=== PATIENT | male | born 1945 | race Caucasian/White ===

== ENCOUNTER 2020-10-17 09:36 | Observation (INO) ==
--- NOTE | 2020-09-15 14:27 | PAT Medication Instructions ---
Medication Instructions Date of Service September 15, 2020 Home Medications Lupron Injections 1 dose INJ UD acetaminophen [Tylenol Extra Strength] 1,000 mg PO Q6H PRN apalutamide [Erleada] 240 mg PO QPM aspirin [Aspir-81] 81 mg PO QAM ezetimibe [Zetia] 10 mg PO HS gabapentin 400 mg PO HS icosapent ethyl [Vascepa] 2 g PO BID isosorbide mononitrate [Imdur] 30 mg PO QAM lisinopril 5 mg PO QAM melatonin 5 mg PO HS PRN metoprolol succinate [Toprol XL] 25 mg PO QAM rosuvastatin [Crestor] 20 mg PO QPM warfarin [Jantoven] 10 mg PO QPM Continue as directed Lupron Injections 1 dose INJ UD (unless surgeon directs otherwise) ASK your prescriber and surgeon warfarin [Jantoven] 10 mg PO QPM apalutamide [Erleada] 240 mg PO QPM STOP taking 2 weeks before surgery icosapent ethyl [Vascepa] 2 g PO BID DO NOT take the morning of surgery lisinopril 5 mg PO QAM Take morning of surgery With a small sip of water, OTHERWISE NOTHING TO EAT OR DRINK AFTER MIDNIGHT: acetaminophen [Tylenol Extra Strength] 1,000 mg PO Q6H PRN (okay to take up to 4 hours prior to surgery if needed) aspirin [Aspir-81] 81 mg PO QAM (unless surgeon directs otherwise) isosorbide mononitrate [Imdur] 30 mg PO QAM metoprolol succinate [Toprol XL] 25 mg PO QAM Take evening before surgery acetaminophen [Tylenol Extra Strength] 1,000 mg PO Q6H PRN (if needed) ezetimibe [Zetia] 10 mg PO HS gabapentin 400 mg PO HS melatonin 5 mg PO HS PRN (if needed) rosuvastatin [Crestor] 20 mg PO QPM Other Notes If you have any questions please call us at [phone] or [phone] or [phone] or [phone]
--- NOTE | 2020-09-18 13:08 | History & Physical Report ---
Date of Service September 18, 2020 DATE OF SURGERY: 10/17/20 PROCEDURE: Left Total Knee Arthroplasty Assessment & Plan (1) Arthritis of knee, left: Risks and benefits of procedure discussed in detail today, patient would like to proceed with a Left total knee replacement at [facility] as scheduled. will obtain medical clearance from Dr Saunders prior to surgery, as well as cardiac clearance from Dr Garcia [facility], scheduled for cardiac cath on 09/19/20. has h/o 3 prior caths and stents x 4. Obtain PATs at [facility]. Will resume Coumadin post op, awaiting recommendations re: bridging, he is currently not bridging for his cardiac cath., f/u 2 weeks post op for routine post-operative care and x-ray, sooner if having any problems. will make arrangements for HHPT at the time of discharge. At this point in time, has failed conservative measures and would like to proceed with surgical intervention. has h/o DVT after fractured ankle and has been on Coumadin since that time. The risks and benefits have been discussed including, but not limited to, risk of infection, nerve injury, stiffness, loss of motion, failure to improve, etc. Reasonable outcomes and options of treatment were discussed. An explanation of appropriate alternatives to the procedure that may be advantageous were discussed and their risks and benefits, as well as the risks and benefits of not proceeding with treatment. I offered to answer any additional inquiries concerning the treatment involved. All the patient's questions were answered. The patient is agreeable, understanding of the treatment plan and alternatives, and wishes to proceed with the treatment plan. History of Present Illness Chief Complaint: left knee pain Primary Care Provider: NO PCP Gigi is a 74 year old male who complains of left knee pain, presents for pre-op evaluation prior to a left total knee replacement by Dr Machado at [facility]. He complains of pain, decreased range of motion, instability and stiffness in his left knee. rates his pain as 6/10 and currently the patient states that the symptoms are moderate-severe. The pain is described as aching, sharp and throbbing. His symptoms are aggravated by ascending stairs, daily activities, first steps while awake walking. Prior NSAIDs include Naproxen and IBU. He has been treated with previous visco injections in the past without much relief. Allergies Allergy/AdvReac Type Severity Reaction Status Date / Time [id number]-[id number]-[id number] Reductase AdvReac Unknown Affects Verified 09/18/20 13:00 Inhibitor liver and muscle aches Home Medications Medication Instructions Recorded Confirmed Type Lupron Injections 1 dose INJ UD 09/15/20 09/15/20 History acetaminophen [Tylenol Extra 1,000 mg PO Q6H PRN 09/15/20 09/15/20 History Strength] apalutamide [Erleada] 240 mg PO QPM 09/15/20 09/15/20 History aspirin [Aspir-81] 81 mg PO QAM 09/15/20 09/15/20 History ezetimibe [Zetia] 10 mg PO HS 09/15/20 09/15/20 History gabapentin 400 mg PO HS 09/15/20 09/15/20 History icosapent ethyl [Vascepa] 2 g PO BID 09/15/20 09/15/20 History isosorbide mononitrate [Imdur] 30 mg PO QAM 09/15/20 09/15/20 History lisinopril 5 mg PO QAM 09/15/20 09/15/20 History melatonin 5 mg PO HS PRN 09/15/20 09/15/20 History metoprolol succinate [Toprol XL] 25 mg PO QAM 09/15/20 09/15/20 History rosuvastatin [Crestor] 20 mg PO QPM 09/15/20 09/15/20 History warfarin [Jantoven] 10 mg PO QPM 09/15/20 09/15/20 History Past Med/Surg History Medical History A-fib Brief episodes noted on pacer check (rate controlled)- coumadin/beta reese Arthritis CAD (coronary artery disease) 01/2017- stents x2, 05/2016- stent x1, 2005- stent x1 Cancer Prostate (dx 2010) s/p prostatectomy/chemo/xrt Dvt femoral (deep venous thrombosis) s/p broken ankle surgery (2017), no issues since- on coumadin Hyperlipidemia Hypertension Obesity Pacemaker Implanted 08/2019 Pulmonary embolism s/p broken ankle surgery (2018), no issues since- on coumadin Surgical History History of arthroscopy R/L shoulder History of cardiac cath x3 (01/2017- stents x2, 05/2016- stent x1, 2004- stent x1) History of colonoscopy 2019 History of open reduction and internal fixation (ORIF) procedure Right ankle History of prostatectomy 2011 Pacemaker Implanted 08/2019 Family History Other No known health problems Social History Smoking Status: Former smoker Second Hand Exposure: Yes (MOTHER SMOKED); Hx Alcohol Use: Yes Alcohol type: beer Hx Substance Use: No Preferred Language: Kinyarwanda Communication Ability: Effective Sales Director Required: No Beliefs That Will Affect Care: None Current Living Situation: Spouse current occupational status: retired Feels Safe at Home: Yes Assistive Devices: Glasses and Hearing Aid - Bilateral Review of Systems Review of Systems: All systems reviewed & are unremarkable except as noted in HPI & below Constitutional: no fever, no chills and no sweats Respiratory: no cough and no dyspnea Cardiovascular: no chest pain, no dyspnea and no orthopnea Gastrointestinal: no abdominal pain, no nausea and no vomiting Musculoskeletal: as per Subjective / HPI Physical Exam Physical Exam: HT: 5ft 8in WT: 108.86kg BP: 122/80 Pulse: 61 Constitutional: WD/WN, vitals as above no acute distress Respiratory: normal respiratory effort, lungs clear to auscultation no respiratory distress, no labored breathing and does not use accessory muscles Cardiovascular: RRR, no murmur, no edema Gastrointestinal (Abdomen): normal bowel sounds, soft, nontender, no hepatosplenomegaly Musculoskeletal: Knee: + knee abnormal to inspection (LEFT KNEE: ), + effusion (+1 effusion), + limited ROM of knee (ROM 0/3/110), + knee ROM with crepitation, + joint line tenderness (medial joint line) and + David's sign positive; no deformity, no skin erythema, no ecchymosis, no valgus laxity, no varus laxity, anterior drawer test negative, Laurence's sign negative and pivot shift test negative Results & Data Results & Data ([facility]) Diagnostic Findings Left Knee X-ray: left knee series confirm advanced degenerative changes to the left knee, greatest medial compartments and patellofemoral joint, showing joint space narrowing, osteophyte formation and subchondral sclerosis. no acute bony pathology noted.
--- NOTE | 2020-09-18 13:10 | Anesthesiology Consultation ---
Date of Service September 18, 2020 Assessment & Plan (1) Encounter for pre-operative examination: - COVID screening: Per assessment on 09/18: Travel screen negative, no known COVID-19 positive contacts or current COVID-19 related symptoms. Patient vaccinated. Surgeon arranging preop COVID testing. Awaiting results. - Check coags AM DOS (warfarin instructions per surgeon/prescriber) - Cardiology office visit (08/30/20): "He has had new onset dyspnea on exertion going up stairs which is relatively minor but new within the last several months. It has not been progressive.. He has had some brief episodes of A. fib that is rate controlled on pacer check.. He did have to be transition from Eliquis to Coumadin due to drug interaction.. Patient is preop for surgery with new onset dyspnea on exertion and previously had stable angina which is improved with Imdur and thus I do think I would get stress test preoperatively to assess for ischemia given his symptoms. Additionally will check an echo to be sure fatigue does not represent LV dysfunction." ECHO done 09/04/20 which was unremarkable. Stress test done 09/07/20 noted "Suspicious for mild ischemia in a medium sized area of the lateral wall extending to the inferior wall. Please note that this abnormality seen only on the attenuation corrected images, however." Per patient, cardiac cath scheduled 09/19 ([facility]). Patient also states that CXR was done a few days ago (ordered by clinical laboratory science professor). Awaiting cardiac cath and CXR reports. Chart Review Chart Review: Patient seen in Pre Admission Testing Teaching & Discussion Pre-Anesthesia Teaching/Discussion Notes: Instructed NPO after midnight before surgery,except medications with 15 cc of water. Medication instructions provided according to the PAT guidelines. History Surgery Operation Date: 10/17/20 08:15 Proposed Procedures p Left Total Knee Arthroplasty - Jaden Machado DO Height/Weight Height: 5 ft 8 in Weight: 110.4 kg Allergies Allergy/AdvReac Type Severity Reaction Status Date / Time Upztcxo-Kmf-Ybn Reductase AdvReac Unknown Affects Verified 09/18/20 13:00 Inhibitor liver and muscle aches Medications Home Medications Medication Instructions Recorded Confirmed Last Taken Lupron Injections 1 dose INJ UD 09/15/20 09/15/20 Unknown acetaminophen [Tylenol Extra 1,000 mg PO Q6H PRN 09/15/20 09/15/20 Unknown Strength] apalutamide [Erleada] 240 mg PO QPM 09/15/20 09/15/20 Unknown aspirin [Aspir-81] 81 mg PO QAM 09/15/20 09/15/20 Unknown ezetimibe [Zetia] 10 mg PO HS 09/15/20 09/15/20 Unknown gabapentin 400 mg PO HS 09/15/20 09/15/20 Unknown icosapent ethyl [Vascepa] 2 g PO BID 09/15/20 09/15/20 Unknown isosorbide mononitrate [Imdur] 30 mg PO QAM 09/15/20 09/15/20 Unknown lisinopril 5 mg PO QAM 09/15/20 09/15/20 Unknown melatonin 5 mg PO HS PRN 09/15/20 09/15/20 Unknown metoprolol succinate [Toprol XL] 25 mg PO QAM 09/15/20 09/15/20 Unknown rosuvastatin [Crestor] 20 mg PO QPM 09/15/20 09/15/20 Unknown warfarin [Jantoven] 10 mg PO QPM 09/15/20 09/15/20 Unknown Past Medical History Medical History A-fib Brief episodes noted on pacer check (rate controlled)- coumadin/beta reese Arthritis CAD (coronary artery disease) 01/2017- stents x2, 05/2016- stent x1, 2004- stent x1 Cancer Prostate (dx 2010) s/p prostatectomy/chemo/xrt Dvt femoral (deep venous thrombosis) s/p broken ankle surgery (2017), no issues since- on coumadin Hyperlipidemia Hypertension Obesity Pacemaker Implanted 08/2019 Pulmonary embolism s/p broken ankle surgery (2017), no issues since- on coumadin Exercise / Class Metabolic Activity III < 4 Walking/Shop/Light housework (one FS (no CP, occasional SOB)) Past Family History Family History Other No known health problems Past Surgical History Surgical History History of arthroscopy R/L shoulder History of cardiac cath x3 (01/2017- stents x2, 05/2016- stent x1, 2004- stent x1) History of colonoscopy 2019 History of open reduction and internal fixation (ORIF) procedure Right ankle History of prostatectomy 2010 Pacemaker Implanted 08/2019 Past Anesthesia History No Hx of Anesthesia Complications and No Family Hx of Anesthesia Complications History of PONV No Hx of PONV and No Hx of Motion Sickness Social History Smoking Status: Former smoker Do You Dip or Chew Tobacco: No Smoking End Date: Quit 30 years ago Hx Alcohol Use: Yes Alcohol type: beer alcohol intake frequency: a few times a month Hx Substance Use: No Review of Systems Patient denies chest pain, shortness of breath, fever, chills, cough, wheezing, palpitations. Physical Exam Vital Signs VITALS BP 108/67 P 60 TEMP 98.7 SP02 95%RA RESP 18 PHYSICAL Full cervical extension range of motion. Full TMJ range of motion. TMD 3 finger breaths Mallampati Score 3 Dentition: upper front caps, missing molars Lungs: clear throughout to auscultation Cardiac: regular rate and rhythm, no murmurs noted Spine: normal Carotid arteries: negative bruit Extremities: no edema Lab Results Anesthesia Preop Results Results Anesthesia Widget: WBC 5.86 K/uL (4.8-10.8) 09/18/20 Hgb 13.2 g/dL (14.0-18.0) L 09/18/20 Hct 40.4 % (42-52) L 09/18/20 Plt 161 K/uL (130-400) 09/18/20 Na 141 mmol/L (136-145) 09/18/20 K 4.0 mmol/L (3.5-5.1) 09/18/20 Cl 108 mmol/L (98-107) H 09/18/20 CO2 27 mmol/L (21-32) 09/18/20 BUN 19 mg/dl (7-18) H 09/18/20 Creat 1.06 mg/dl (0.6-1.4) 09/18/20 Glucose Level 142 mg/dl (70-99) H 09/18/20 PT 10.3 Seconds (9.0-12.0) 09/18/20 PTT 26.4 Seconds (21.0-31.0) 09/18/20 INR 1.0 (0.9-1.1) 09/18/20 HA1c 5.9 % (4.5-5.6) H 09/18/20 Urine Color Yellow 09/18/20 Urine Appearance Clear (Clear) 09/18/20 Urine pH 5.5 (4.5-7.5) 09/18/20 Urine Specific Chandler 1.019 (1.000-1.030) 09/18/20 Urine Protein Negative (Negative) 09/18/20 Urine Glucose (UA) Negative (Negative) 09/18/20 Urine Ketones Trace (Negative) H 09/18/20 Urine Blood Negative (Negative) 09/18/20 Urine Nitrite Negative (Negative) 09/18/20 Urine Bilirubin Negative (Negative) 09/18/20 Urine Urobilinogen Negative (Negative) 09/18/20 Urine Leukocyte Esterase Negative (Negative) 09/18/20 Blood Type O Positive 09/18/20 Antibody Screen NEGATIVE 09/18/20 Testing Electrocardiogram Date: 08/30/20 Atrial paced rhythm with prolonged AV conduction at 61 bpm. LAD. Pulmonary disease pattern. No significant change compared to 01/20/2020 per clinical laboratory science professor review. Echocardiogram Date: 09/04/20 LVEF 55 to 60%. No regional wall motion abnormalities. No significant valvular disease. Stress Test Date: 09/07/20 Type: nuclear (Lexiscan) Suspicious for mild ischemia in a medium sized area of the lateral wall extending to the inferior wall. Please note that this abnormality seen only on the attenuation corrected images, however. Left ventricular systolic function is normal following Lexiscan regadenoson stress. The ejection fractions are normal. Cardiology scheduled patient for cardiac cath 09/19/20. Other Testing Pacer check (07/15/20): [facility] Mode DDDR. Battery longevity 9.5 to 10.1 years. 5 A. fib episodes. No ventricular triggered events. AP 99%. DYE RANGE TENDER 20%. "Appropriate device function"
[~2020-10-17 09:36] MED LIST: BUPIVACAINE 0.5 % 5 MG/1 ML PF 10ML VIAL ONE; CeleBREX 200 MG CAP PO SCH; EPINEPHrine INJ 1 MG/ML AMP ONE; FAMOTIDINE 20 MG TAB PO SCH; GABAPENTIN 300 MG CAP PO SCH; LR 500ML BOLUS, THEN 15ML/HR IV SCH; METOCLOPRAMIDE HCL 10 MG TABLET PO SCH; ROPIVACAINE 0.5% 5 MG/ML 30 ML VIAL ONE; ROPIVACAINE 0.5% HCL/PF 150 MG, BUPIVACAINE 0.75% MPF 20 ML, EPINEPHrine 30MG/30ML (OR ... INSTIL SCH; TRANEXAMIC ACID 1,000 MG **IV Intra-op IV SCH; TRANEXAMIC ACID 1,000 MG **IV Pre-op IV SCH; ceFAZolin 2000MG 2,000 MG/15 ML SYR IV SCH; dexAMETHasone 4 MG TAB PO SCH; oxyCODONE HCL 10 MG TABCR (OxyCONTIN) PO SCH
[2020-10-17] MEDS: ACETAMINOPHEN 500 MG TAB PO SCH ×3 (10:06→21:40)
[2020-10-17 10:21] LABS: Partial Thromboplastin Ratio 1.1; Partial Thromboplastin Time 28.3 Seconds (21.0-31.0); Prothrombin Time 9.9 Seconds (9.0-12.0)
--- NOTE | 2020-10-17 10:34 | History & Physical Bridge Note ---
Date of Service October 17, 2020 History & Physical Bridge Note I have examined the patient, reviewed the History & Physical and in the interval since the performance of the History & Physical I have noted the following changes of clinical significance: no changes noted
[2020-10-17] MEDS ORDERED: PROPOFOL IV EMULSION 10 MG/ML 20 ML VIAL IV ONE (10:51)
[2020-10-17] MEDS ORDERED: MIDAZOLAM HCL 1 MG/ML 2ML VIAL ONE (10:51)
[2020-10-17] MEDS ORDERED: fentaNYL citrate 100 MCG/2 ML VIAL ONE (10:52)
[2020-10-17] MEDS ORDERED: ORTHO JOINT ANESTHETIC ONE (12:16)
[2020-10-17] MEDS ORDERED: fentaNYL citrate 100 MCG/2 ML VIAL IV PRN (12:26)
[2020-10-17] MEDS ORDERED: ePHEDrine sulfate 50 MG/ML AMP IV PRN (12:26)
[2020-10-17] MEDS ORDERED: ATROPINE SULFATE 0.1 MG/ML 10ML SYR IV PRN (12:26)
[2020-10-17] MEDS ORDERED: ONDANSETRON INJ 2 MG/ML 2 ML VIAL IV PRN ×2 (12:26→15:56)
[2020-10-17] MEDS ORDERED: HYDROmorphone INJ 1 MG/ML SYRINGE IV PRN (12:26)
--- NOTE | 2020-10-17 13:53 | Operative Report ---
Post Operative Report Pre & Post Diagnosis Operation Date: 10/17/20 12:30 Pre-Op Diagnosis: Left Knee Osteoarthritis Post-Op Diagnosis: Left Knee Osteoarthritis I identified the patient and participated in the time-out.: Yes Procedure Operation Date: 10/17/20 12:30 Actual Procedures p Left Total Knee Arthroplasty(Left) utilizing [employer] persona nonblock size 9 femur standard tibia F polythirteen medial constrained patella 31 oval- Jaden Machado DO Surgeon Jaden Machado DO [employer] Terrell WATSON Estimated Blood Loss 5 Findings Consistent with Post-Op Diagnosis Patient presents with severe end-stage DJD left knee bone to bone marginal osteophyte subchondral sclerosis with cystic changes eburnated [id number] with moderate to large effusion Specimens Bone and cartilage Drains Medium bore Hemovac Anesthesia Type MAC Spinal Regional Complications none Disposition Accompanied Patient To Recovery: No Disposition: Recovery Room Indications Patient presents with severe end-stage DJD failing attempted conservative management clinic physical therapy anti-inflammatories relative rest activity modification corticosteroid injection viscosupplementation above intraoperative findings were noted Description of Procedure After proper prepping and draping of the left lower extremity anterior midline incision was made over the region of the extensor extensor mechanism after meticulous hemostasis was obtained and maintained in subcutaneous tissues a medial parapatellar incision was made The patella was subluxed lateralward the medial lateral gutter were cleaned from any hypertrophic synovitis and scar tissue of the distal femoral block was placed and the distal femoral osteotomy cut was made subsequently the chamfers anterior and posterior osteotomy cuts were made utilizing the 4-in-1 block the tibia was subsequently subluxed anteriorward medial and ateral meniscal remnants were excised in their entirety remnants of the anterior and posterior cruciate ligaments were excised in their entirety excellent exposure of the proximal tibia was obtained the tibial osteotomy guide was placed on the proximal tibial osteotomy cut was made once again the knee was irrigated with copious amounts of sterile saline solution the patella was subsequently everted lateralward thickened scar tissue around the patella was removed the patella was subsequently cut utilizing a freehand technique and was drilled prepared for final preparation and placement of patella socially flexion-extension gaps were checked and the equal and symmetric trials were placed to the appropriate femoral and tibial trials with poly-spacer being placed for equal flexion and extension gaps and full range of motion including extension to 0 and flexion to 140 the trial components after having been taken to recovery range of motion was subsequently removed meticulous hemostasis was obtained and maintained subsequently a knee block injection of joint cocktail including ropivacaine 0.5% 150 mg. Bupivacaine 0.5% epinephrine 1-200,030 mL's toradol 30 mg dexamethasone 4 mg ketamine 10 mg clonidine 100 micrograms normal saline solution 30 mg was infiltrated into the soft tissues of the posterior knee medial lateral gutters and periosteal synovium special attention was paid to protect neurovascular structures at all times subsequently trial components having been removed the knee was irrigated with sterile saline solution. debris was removed the proximal tibia was subsequently prepared and was made ready for the placement of the tibial component tibial component was also cemented and tamped into position the femoral component was subsequently placed and cemented in the position the patellar component was subsequently cemented in position because hemostasis once again obtained and maintained wound having been thoroughly irrigated with debridement and debridement lavage was pe rformed as well as a medial parapatellar incision closed with #1 Vicryl in interrupted fashion subcutaneous was closed with #2 Vicryl skin was closed with skin clips. PA-C was necessary for prepping and drapping as well as wound closure of deep fascia Sub cutaneous tissue and skin and was necessary for the case. A sterile compressive dressing was placed patient was taken to recovery in stable condition of report dictated by Carter I attest to the content of the Intraoperative Record and any orders documented therein. Any exceptions are noted below. I attest to the content of the Intraoperative Record and any orders documented therein. Any exceptions are noted below.
--- NOTE | 2020-10-17 14:57 | Anesthesiology Progress Note ---
Date of Service October 17, 2020 Anesthesia Post Procedure Vital Signs Vital Signs: Temp Pulse Pulse Resp BP BP Pulse Ox 10/17/20 14:50 60 16 126/62 100 10/17/20 14:40 61 16 118/60 99 10/17/20 14:34 36.1 C L 60 16 113/56 L 97 10/17/20 10:53 36.8 C 60 18 119/68 98 10/17/20 10:10 37.1 C 60 16 156/71 H 98 Transfer of Care Handoff Completed per policy Notes Mental Status: alert / awake / arousable Patient Amnestic to Procedure: Yes Nausea / Vomiting: adequately controlled Pain: adequately controlled Airway Patency, RR, SpO2: stable & adequate BP & HR: stable & adequate Hydration State: stable & adequate Neuraxial Anesthesia: was administered and sensory block is resolving Anesthetic Complications: no major complications apparent
--- NOTE | 2020-10-17 15:04 | XRay Report ---
XR knee LT 1 or 2V routine CLINICAL HISTORY: Surgical Post Op COMPARISON: None. DISCUSSION: Prosthetic left knee joint is seen. No acute fracture dislocation demonstrated. Subcutaneous emphysema, skin ed and surgical drainage are seen. Mild soft tissue edema. IMPRESSION: Postoperative changes as detailed above. ACT 112: Negative or not required by law. The above report was generated using voice recognition software. It may contain grammatical, syntax o r spelling errors. Electronically signed by: Jessica Garza DO 10/17/2020 3:03 PM
[2020-10-17] MEDS ORDERED: oxyCODONE HCL IR 5 MG TAB (IMMEDIATE RELEASE) PO PRN (15:56)
[2020-10-17] MEDS ORDERED: MAGNESIUM HYDROXIDE SUSP 30 ML UDC PO PRN (15:56)
[2020-10-17] MEDS ORDERED: HYDROmorphone INJ 0.5 MG/0.5 ML SYR IV PRN (15:56)
[2020-10-17] MEDS ORDERED: bisacodyL 10 MG SUPP PR PRN (15:56)
[2020-10-17] MEDS ORDERED: SODIUM CHLORIDE 0.9% 1000ML 1,000 ML IV SCH (15:56)
[2020-10-17] MEDS ORDERED: NALOXONE HCL 0.4 MG/1 ML VIAL/CARP IV PRN (15:56)
[2020-10-17] MEDS ORDERED: WARFARIN SOD 10 MG TAB PO SCH ×2 (16:00→21:00)
[2020-10-17] MEDS: FERROUS GLUCONATE 324 MG TAB PO SCH (17:05)
[2020-10-17] MEDS: DOCUSATE SODIUM 100 MG CAP PO SCH (20:53)
[2020-10-17] MEDS: ceFAZolin 2000MG 2,000 MG/15 ML SYR IV SCH (20:53)
[2020-10-17] MEDS ORDERED: ROSUVASTATIN CALCIUM 20 MG TAB PO SCH (21:00)
[2020-10-17] MEDS ORDERED: GABAPENTIN 400 MG CAP PO SCH (21:00)
[2020-10-17] MEDS ORDERED: SENNA 8.6 MG TAB PO SCH (21:00)
[2020-10-17] MEDS ORDERED: EZETIMIBE 10 MG TABLET PO SCH (21:00)
[2020-10-18] MEDS: ACETAMINOPHEN 500 MG TAB PO SCH (06:04)
[2020-10-18] MEDS: ceFAZolin 2000MG 2,000 MG/15 ML SYR IV SCH (06:06)
[2020-10-18 06:43] LABS: Hematocrit (blood only) 33.8 % (42-52); Hemoglobin 11.2 g/dL (14.0-18.0); Mean Corpuscular Hemoglobin 29.8 pg (25-34); Mean Corpuscular Hgb Conc 33.1 g/dL (32-36); Mean Corpuscular Volume 89.9 fL (80-100); Mean Platelet Volume 10.4 fL (7.4-10.4); Platelet Count 122 K/uL (130-400); RDW Standard Deviation 46.3 fL (36.4-46.3); Red Blood Count 3.76 M/uL (4.7-6.1); White Blood Count 6.46 K/uL (4.8-10.8)
[2020-10-18 06:47] LABS: Prothrombin Time 10.2 Seconds (9.0-12.0)
[2020-10-18 07:12] LABS: BUN Creatinine Ratio 16.4 (10-20); Calcium 8.2 mg/dl (8.5-10.1); Creatinine Clr Calc Pharmacy 88.5 ml/min; Est GFR (African American) 98.3 ml/min; Est GFR (Non-African American) 84.8 ml/min; Potassium 3.6 mmol/L (3.5-5.1)
--- NOTE | 2020-10-18 07:24 | Orthopedic Progress Note ---
Date of Service October 18, 2020 Assessment & Plan (1) History of total left knee replacement: Plan: POD #1 s/p Left TKA pt/ot dvt proph with ANA LUISA/SCD/resume home Coumadin dose plan for d/c home with HHPT Admission and Anticipated Discharge Date Admission Date: October 17, 2020 Subjective POD #1 s/p Left TKA Review of Systems Constitutional: no fever, no chills and no sweats Respiratory: no cough and no dyspnea Cardiovascular: no chest pain and no dyspnea Gastrointestinal: no abdominal pain, no nausea and no vomiting Physical Exam Physical Exam: Vital Signs Temp Pulse Pulse Resp BP BP Pulse Ox 10/18/20 07:14 36.8 C 63 17 151/82 H 96 10/18/20 03:03 36.4 C L 62 16 111/63 97 10/17/20 22:48 36.6 C 62 16 120/65 97 10/17/20 18:57 36.5 C 58 L 17 138/73 98 10/17/20 18:00 36.7 C 62 18 142/75 H 96 10/17/20 17:00 36.4 C L 62 18 148/79 H 94 10/17/20 16:26 36.4 C L 60 18 142/71 H 97 10/17/20 15:56 36.4 C L 60 18 155/77 H 97 10/17/20 15:30 63 16 141/73 H 96 10/17/20 15:15 62 16 124/62 96 10/17/20 15:00 36.3 C L 60 16 118/62 97 10/17/20 14:50 60 16 126/62 100 10/17/20 14:40 61 16 118/60 99 10/17/20 14:34 36.1 C L 60 16 113/56 L 97 10/17/20 10:53 36.8 C 60 18 119/68 98 10/17/20 10:10 37.1 C 60 16 156/71 H 98 Intake and Output 10/17/20 10/18/20 10/18/20 22:59 06:59 14:59 Intake Total 675 / 2581.667 806.667 / 2581.667 Output Total 700 / 1655 950 / 1655 Balance -25 / 926.667 -143.333 / 926.667 Intake: IV 200 / 1006.667 806.667 / 1006.667 Sodium Chlorid e 0.9% 1000ML 1, 806.667 / 806.667 000 ml @ 100 m ls/hr IV .Q10H [facility] Rx#:[id number] Tranexamic Aci d / 0.7% NaCl 1, 200 / 200 000 mg In 100 ml @ 600 mls/hr IV TODAY@0600 [facility] Rx#:[id number] Oral 475 / 475 Output: Urine 600 / 1550 950 / 1550 Drain Output 100 / 100 Left Knee Hemo vac 100 / 100 Constitutional: WD/WN, vitals as above Musculoskeletal: Left Leg: NVDI, calf SNT, negative isabell sign. DP palpable, able to wiggle toes/ankle movement without difficulty. dressing clean dry and intact. Results & Data ([facility]) Vital Signs (Past 12 Hours) Vital Signs Temp Pulse Resp BP Pulse Ox 10/18/20 07:14 36.8 C 63 17 151/82 H 96 10/18/20 03:03 36.4 C L 62 16 111/63 97 10/17/20 22:48 36.6 C 62 16 120/65 97 Laboratory Results Laboratory Results WBC 6.46 K/uL (4.8-10.8) 10/18/20 05:49 RBC 3.76 M/uL (4.7-6.1) L 10/18/20 05:49 Hgb 11.2 g/dL (14.0-18.0) L 10/18/20 05:49 Hct 33.8 % (42-52) L 10/18/20 05:49 MCV 89.9 fL (80-100) 10/18/20 05:49 MCH 29.8 pg (25-34) 10/18/20 05:49 MCHC 33.1 g/dL (32-36) 10/18/20 05:49 RDW Std Deviation 46.3 fL (36.4-46.3) 10/18/20 05:49 RDW Coeff of Jonathan 14.0 % (11.5-14.5) 10/18/20 05:49 Plt Count 122 K/uL (130-400) L 10/18/20 05:49 MPV 10.4 fL (7.4-10.4) 10/18/20 05:49 PT 10.2 Seconds (9.0-12.0) 10/18/20 05:49 INR 1.0 (0.9-1.1) 10/18/20 05:49 APTT 28.3 Seconds (21.0-31.0) 10/17/20 10:00 PTT Ratio 1.1 10/17/20 10:00 Sodium 138 mmol/L (136-145) 10/18/20 05:49 Potassium 3.6 mmol/L (3.5-5.1) 10/18/20 05:49 Chloride 112 mmol/L (98-107) H 10/18/20 05:49 Carbon Dioxide 26 mmol/L (21-32) 10/18/20 05:49 Anion Gap 0 (3-11) L 10/18/20 05:49 BUN 15 mg/dl (7-18) 10/18/20 05:49 Creatinine 0.89 mg/dl (0.6-1.4) 10/18/20 05:49 Est Cr Clr Drug Dosing 88.5 ml/min 10/18/20 05:49 Est GFR ( Amer) 98.3 ml/min 10/18/20 05:49 Est GFR (Non-Af Amer) 84.8 ml/min 10/18/20 05:49 BUN/Creatinine Ratio 16.4 (10-20) 10/18/20 05:49 Glucose 129 mg/dl (70-99) H 10/18/20 05:49 Calcium 8.2 mg/dl (8.5-10.1) L 10/18/20 05:49 COVID-19 Eval Order Covid19 [facility] 10/17/20 Unknown SARS-CoV-2, RNA, NAAT NEGATIVE (NEGATIVE) 10/17/20 Unknown Impressions Knee X-Ray 10/17/20 14:38 XR knee LT 1 or 2V routine CLINICAL HISTORY: Surgical Post Op COMPARISON: None. DISCUSSION: Prosthetic left knee joint is seen. No acute fracture dislocation demonstrated. Subcutaneous emphysema, skin ed and surgical drainage are seen. Mild soft tissue edema. IMPRESSION: Postoperative changes as detailed above. ACT 112: Negative or not required by law. The above report was generated using voice recognition software. It may contain grammatical, syntax or spelling errors. Electronically signed by: Jessica Garza DO 10/17/2020 3:03 PM
[2020-10-18] MEDS: DOCUSATE SODIUM 100 MG CAP PO SCH (08:22)
[2020-10-18] MEDS: FERROUS GLUCONATE 324 MG TAB PO SCH (08:22)
[2020-10-18] MEDS ORDERED: lisinopril 5 MG TAB PO SCH (09:00)
[2020-10-18] MEDS ORDERED: MULTIVITAMIN TAB PO SCH (09:00)
[2020-10-18] MEDS ORDERED: METOPROLOL SUCC 25MG EXT REL TAB PO SCH (09:00)
[2020-10-18] MEDS ORDERED: ISOSORBIDE MONO EXTENDED REL 30 MG TABCR PO SCH (09:00)
--- NOTE | 2020-10-19 11:20 | Discharge Summary ---
Date of Service October 19, 2020 Admission HPI Per Admitting Provider Gigi is a 74 year old male who complains of left knee pain, presents for pre-op evaluation prior to a left total knee replacement by Dr Machado at [facility]. He complains of pain, decreased range of motion, instability and stiffness in his left knee. rates his pain as 6/10 and currently the patient states that the symptoms are moderate-severe. The pain is described as aching, sharp and throbbing. His symptoms are aggravated by ascending stairs, daily activities, first steps while awake walking. Prior NSAIDs include Naproxen and IBU. He has been treated with previous visco injections in the past without much relief. Admission Exam Per Admitting Provider Physical Exam Physical Exam: HT: 5ft 8in WT: 108.86kg BP: 122/80 Pulse: 61 Constitutional: WD/WN, vitals as above no acute distress Respiratory: normal respiratory effort, lungs clear to auscultation no respiratory distress, no labored breathing and does not use accessory muscles Cardiovascular: RRR, no murmur, no edema Gastrointestinal (Abdomen): normal bowel sounds, soft, nontender, no hepatosplenomegaly Musculoskeletal: Knee: + knee abnormal to inspection (LEFT KNEE: ), + effusion (+1 effusion), + limited ROM of knee (ROM 0/3/110), + knee ROM with crepitation, + joint line tenderness (medial joint line) and + David's sign positive; no deformity, no skin erythema, no ecchymosis, no valgus laxity, no varus laxity, anterior drawer test negative, Laurence's sign negative and pivot shift test negative Principal Diagnosis Left knee osteoarthritis Discharge Data Allergies Allergy/AdvReac Type Severity Reaction Status Date / Time Prtquox-Pno-Lke Reductase AdvReac Unknown Affects Verified 10/17/20 10:17 Inhibitor liver and muscle aches Consultations 10/10/20 15:00 Consult Hospitalist Routine Procedures Performed Operation Date: 10/17/20 12:30 Actual Procedures p Left Total Knee Arthroplasty(Left) - Jaden Machado DO Ordered Studies 10/17/20 05:00 US - OR guided needle placemen Routine Hospital Course (1) Arthritis of knee, left: Date of Service October 18, 2020 Assessment & Plan (1) History of total left knee replacement: Plan: POD #1 s/p Left TKA pt/ot dvt proph with ANA LUISA/SCD/resume home Coumadin dose plan for d/c home with HHPT Admission and Anticipated Discharge Date Admission Date: October 17, 2020 Subjective POD #1 s/p Left TKA Review of Systems Constitutional: no fever, no chills and no sweats Respiratory: no cough and no dyspnea Cardiovascular: no chest pain and no dyspnea Gastrointestinal: no abdominal pain, no nausea and no vomiting Physical Exam Physical Exam: Vital Signs Temp Pulse Pulse Resp BP BP Pulse Ox 10/18/20 07:14 36.8 C 63 17 151/82 H 96 10/18/20 03:03 36.4 C L 62 16 111/63 97 10/17/20 22:48 36.6 C 62 16 120/65 97 10/17/20 18:57 36.5 C 58 L 17 138/73 98 10/17/20 18:00 36.7 C 62 18 142/75 H 96 10/17/20 17:00 36.4 C L 62 18 148/79 H 94 10/17/20 16:26 36.4 C L 60 18 142/71 H 97 10/17/20 15:56 36.4 C L 60 18 155/77 H 97 10/17/20 15:30 63 16 141/73 H 96 10/17/20 15:15 62 16 124/62 96 10/17/20 15:00 36.3 C L 60 16 118/62 97 10/17/20 14:50 60 16 126/62 100 10/17/20 14:40 61 16 118/60 99 10/17/20 14:34 36.1 C L 60 16 113/56 L 97 10/17/20 10:53 36.8 C 60 18 119/68 98 10/17/20 10:10 37.1 C 60 16 156/71 H 98 Intake and Output 10/17/20 10/18/20 10/18/20 22:59 06:59 14:59 Intake Total 675 / 2581.667 806.667 / 2581.667 Output Total 700 / 1655 950 / 1655 Balance -25 / 926.667 -143.333 / 926.667 Intake: IV 200 / 1006.667 806.667 / 1006.667 Sodium Chlorid e 0.9% 1000ML 1, 806.667 / 806.667 000 ml @ 100 m ls/hr IV .Q10H [facility] Rx#:[id number] Tranexamic Aci d / 0.7% NaCl 1, 200 / 200 000 mg In 100 ml @ 600 mls/hr IV TODAY@0600 [facility] Rx#:[id number] Oral 475 / 475 Output: Urine 600 / 1550 950 / 1550 Drain Output 100 / 100 Left Knee Hemo vac 100 / 100 Constitutional: WD/WN, vitals as above Musculoskeletal: Left Leg: NVDI, calf SNT, negative isabell sign. DP palpable, able to wiggle toes/ankle movement without difficulty. dressing clean dry and intact. Results & Data ([facility]) Vital Signs (Past 12 Hours) Vital Signs Temp Pulse Resp BP Pulse Ox 10/18/20 07:14 36.8 C 63 17 151/82 H 96 10/18/20 03:03 36.4 C L 62 16 111/63 97 10/17/20 22:48 36.6 C 62 16 120/65 97 Laboratory Results Laboratory Results WBC 6.46 K/uL (4.8-10.8) 10/18/20 05:49 RBC 3.76 M/uL (4.7-6.1) L 10/18/20 05:49 Hgb 11.2 g/dL (14.0-18.0) L 10/18/20 05:49 Hct 33.8 % (42-52) L 10/18/20 05:49 MCV 89.9 fL (80-100) 10/18/20 05:49 MCH 29.8 pg (25-34) 10/18/20 05:49 MCHC 33.1 g/dL (32-36) 10/18/20 05:49 RDW Std Deviation 46.3 fL (36.4-46.3) 10/18/20 05:49 RDW Coeff of Jonathan 14.0 % (11.5-14.5) 10/18/20 05:49 Plt Count 122 K/uL (130-400) L 10/18/20 05:49 MPV 10.4 fL (7.4-10.4) 10/18/20 05:49 PT 10.2 Seconds (9.0-12.0) 10/18/20 05:49 INR 1.0 (0.9-1.1) 10/18/20 05:49 APTT 28.3 Seconds (21.0-31.0) 10/17/20 10:00 PTT Ratio 1.1 10/17/20 10:00 Sodium 138 mmol/L (136-145) 10/18/20 05:49 Potassium 3.6 mmol/L (3.5-5.1) 10/18/20 05:49 Chloride 112 mmol/L (98-107) H 10/18/20 05:49 Carbon Dioxide 26 mmol/L (21-32) 10/18/20 05:49 Anion Gap 0 (3-11) L 10/18/20 05:49 BUN 15 mg/dl (7-18) 10/18/20 05:49 Creatinine 0.89 mg/dl (0.6-1.4) 10/18/20 05:49 Est Cr Clr Drug Dosing 88.5 ml/min 10/18/20 05:49 Est GFR ( Amer) 98.3 ml/min 10/18/20 05:49 Est GFR (Non-Af Amer) 84.8 ml/min 10/18/20 05:49 BUN/Creatinine Ratio 16.4 (10-20) 10/18/20 05:49 Glucose 129 mg/dl (70-99) H 10/18/20 05:49 Calcium 8.2 mg/dl (8.5-10.1) L 10/18/20 05:49 COVID-19 Eval Order Covid19 [facility] 10/17/20 Unknown SARS-CoV-2, RNA, NAAT NEGATIVE (NEGATIVE) 10/17/20 Unknown Impressions Knee X-Ray 10/17/20 14:38 XR knee LT 1 or 2V routine CLINICAL HISTORY: Surgical Post Op COMPARISON: None. DISCUSSION: Prosthetic left knee joint is seen. No acute fracture dislocation demonstrated. Subcutaneous emphysema, skin ed and surgical drainage are seen. Mild soft tissue edema. IMPRESSION: Postoperative changes as detailed above. Total Time Total Time Spent Total Time Spent (In Minutes): 5 Discharge Plan Discharge Items Patient Disposition: Home - Home Health Services Reason For Visit: Left Knee Osteoarthritis Discharge Diagnosis: left total knee replacement Condition on Discharge: Good Activity: Per Instructions section Lifting: Wait until after follow-up appointment Weightbearing Comment: WBAT with walker Non-emergency contact: Surgeon Call non-emergency contact if: you have any medication questions, your temperature is above 101, your wound has increased redness, your wound has increased drainage and your wound pain has increased Follow-up/Referrals: Tristian Patten M.D. [Primary Care Provider] - Diet: Regular Addtl Attending Provider Instructions: ACTIVITY RECOMMENDATIONS: SELF CARE INSTRUCTIONS AFTER TOTAL KNEE REPLACEMENT A. You may need to continue a physical therapy program after discharge from the hospital. There are several options available to you. Your doctor will assist you in selecting the best one for you. 1. An out-patient facility 2 to 3 times a week for therapy or home therapy. 2. Continue working on all exercises taught to you in the hospital. Your goals should be to increase bending of your knee to 90 degrees and beyond and to fully straighten your knee. B. You may progress at your own pace from walking with a walker or crutches to a cane; then to no assistive devices. C. Make walking a part of your daily routine. Be up as much as comfortable with rest periods throughout the day. Rest with leg elevation is very important. Use the ice wrap frequently for the first 3-4 weeks. D. There are no restrictions on activities. You may ride in a car, shop, participate in lehr attendant and all social activities. E. Wear the long elastic stockings (ANA LUISA hose) 20 hours a day for 2 weeks after surgery. They can be removed several times a day for laundering and for a bath. F. You may shower, no tub baths until cleared by your doctor. SPECIAL CARE INSTRUCTIONS: VERY IMPORTANT TO READ AND REVIEW A. There are a few signs you need to watch for after you are home. Call [facility] if you notice any of the followin. Increased severe knee pain. Some pain is expected especially when you exercise. 2. Increased swelling in your leg or knee; pain or swelling of the calf muscle in either lower leg. 3. Any fluid drainage from the incision. 4. Shortness of breath or chest pain. B. Please call [facility] at if you have any concerns or questions about your operation or recovery. The doctor or his nurse will return your call promptly. C. You must take antibiotics before dental work, bladder, bowel or other surgery. Your doctor will provide you with a permanent care to carry describing this precaution. IMPORTANT: * REMEMBER TO TAKE ASPIRIN, 81 MG, TWICE DAILY FOR 4 WEEKS UNLESS OTHERWISE DIRECTED. THIS IS YOUR BLOOD THINNER. * HIGH RISK PATIENTS MAY BE PRESCRIBED A STRONGER BLOOD THINNER. THIS WILL BE PROVIDED AT DISCHARGE. * CALL IF INCREASED PAIN, REDNESS, DRAINAGE OR FEVER GREATER THAT 101. * WEAR ANA LUISA HOSE 20 HOURS PER DAY FOR 2 WEEKS. * DERMABOND Prineo- This is a mesh tape dressing that is covered with glue. It should remain in place until the incision is properly healed, usually 10-14 days. This dressing is designed to naturally slough off. You may trim the excess mesh tape as it peels off. Incision may be briefly wet in a shower. Dry immediately by blotting with a clean, dry towel. Do not bath or swim until instructed by your doctor. Do not scratch, rub, or pick at the dressing. Do not apply any topical ointments or lotions until dressing is completely removed and/or instructed by your doctor. There may be a small piece of suture material at one end of your incision. Do not pull or trim this. If it is bothersome or catching on clothing, you may cover it with a band-aid. IF INCISION IS LEAKING THROUGH DRESSING, CALL THE OFFICE . FOLLOW UP VISIT: If appointment is not already scheduled: Please call [facility] to make a follow-up appointment for 2 weeks after your surgery at . Pending Studies at Discharge: No Stand-Alone Forms: My [facility], Opioid Pain Management, Smoking Cessation Medications and DC Order Prescriptions: New acetaminophen [Tylenol Extra Strength] 500 mg Tablet 1,000 mg PO Q8 21 Days Qty: 126 RF: 0 oxycodone 5 mg Tablet 5 - 10 mg PO Q6H PRN (Reason: pain) Qty: 30 RF: 0 docusate sodium 100 mg Capsule 100 mg PO BID 10 Days Qty: 20 RF: 0 cefadroxil 500 mg capsule 500 mg PO BID 14 Days Qty: 28 RF: 0 Continued isosorbide mononitrate 30 mg Tablet Extended Release 24 Hr 30 mg PO QAM RF: 0 gabapentin 400 mg Capsule 400 mg PO HS RF: 0 aspirin 81 mg Tablet,Delayed Release (Dr/Ec) 81 mg PO QAM RF: 0 warfarin [Jantoven] 5 mg Tablet 10 mg PO QPM RF: 0 lisinopril 5 mg Tablet 5 mg PO QAM RF: 0 metoprolol succinate [Toprol XL] 25 mg Tablet Extended Release 24 Hr 25 mg PO QAM RF: 0 ezetimibe [Zetia] 10 mg Tablet 10 mg PO HS RF: 0 rosuvastatin [Crestor] 20 mg Tablet 20 mg PO QPM RF: 0 icosapent ethyl [Vascepa] 1 gram Capsule 2 g PO BID RF: 0 Erleada 60 mg Tablet 240 mg PO QPM RF: 0 melatonin 5 mg Capsule 5 mg PO HS PRN (Reason: Sleep) RF: 0 Lupron Injections 1 dose INJ UD RF: 0 Discontinued acetaminophen [Tylenol Extra Strength] 500 mg Capsule 1,000 mg PO Q6H PRN (Reason: Pain) RF: 0 Discharge Orders: Discharge Order (Routine); Ordered 10/18/20 Ordered By: Eb Roca/Other Patient Handouts: DVT Post Op Prevention Admission Data Admit Date/Time: 10/17/20 14:38 Attending Provider: Jaden Machado Admit Provider: Jaden Machado Primary Care Provider: Tristian Patten Other Providers: Kendrick Adams Other Interventions: Discharge Summary Assessment (RN) Last Done: 10/18/20 10:06
== END 2020-10-18 12:43 | disposition home health service (06) ==
LOC: 3E 09:36 → ASU 09:36